=== PATIENT | female | born 1930 | race Caucasian/White ===

== ENCOUNTER 2018-07-13 12:50 | Emergency (ER) | payer MEDICARE, BC, MEDICAID ==
[2018-07-13] MEDS: HYDROmorphONE 2 MG/ML SYG IM (14:03)
[2018-07-13] MEDS: ONDANSETRON (ODT) 4 MG TAB ODT (14:03)
== END 2018-07-13 16:46 | disposition home or self-care (01) ==
LOC: E/R 12:50
DX: S22.080A Wedge compression fracture of T11-T12 vertebra, initial encounter for closed fracture (principal); R94.02 Abnormal brain scan; W18.39XA Other fall on same level, initial encounter; Y92.9 Unspecified place or not applicable; Z79.82 Long term (current) use of aspirin
CPT/HCPCS: 70450; 72128; 72131; 96372; 99285-25